=== PATIENT | male | born 1945 | race Caucasian/White ===

== ENCOUNTER 2017-06-12 15:08 | Emergency (ER) | payer MEDICARE, OTHER ==
[2017-06-12] MEDS ORDERED: Sodium Chloride 0.9% 10 ML Syringe FLUSH PRN (15:16)
[2017-06-12] MEDS ORDERED: Sodium Chloride 0.9% 1,000 ML IV SCH (15:30)
--- NOTE | 2017-06-12 16:38 | CT ---
Head CT Technique: Multiple axial sections through the brain were obtained. Intravenous contrast was not utilized. Comparison: No previous intracranial imaging is available. Findings: Ventricles along with basal cisterns and sulci with convexities are mildly prominent. Small calcification appears to be present within the right cerebellar peduncle. This is felt to be incidental. Mild vascular calcification is seen within the vertebral vessels and carotid siphon. No evidence of intracranial hemorrhage. No midline shift or mass effect is seen. No abnormal parenchymal densities are otherwise seen. Bone window settings were reviewed which shows the visualized sinuses to appear clear. No acute calvarial abnormality is seen. Impression: 1. Incidental findings. Nothing acute is identified on noncontrast head CT study. Diagnostic code #2
[2017-06-12] MEDS ORDERED: Sodium Chloride 0.9% 1,000 ML IV ONE (17:22)
--- NOTE | 2017-06-12 17:31 | EDM.PDOC ---
ED HPI GENERAL MEDICAL PROBLEM - General Chief Complaint: Chest Pain Stated Complaint: [facility] Time Seen by Provider: 06/12/17 15:12 Source of Information: Reports: Patient, EMS History Limitations: Reports: No Limitations - History of Present Illness INITIAL COMMENTS - FREE TEXT/NARRATIVE: The patient presents by [facility] for chest pain. He is originally from the [facility] and he was taking care of his son's dogs in [place]. He is a type 2 diabetic and he requires metformin and insulin. He takes 1,000mg of metformin and sixty eight units of insulin degludec or tresiba. He cannot afford these medications and he has not been taking them for about 7 weeks. He has been very weak and drinking and urinating a lot. He has not checked his blood sugar. He developed some chest pain today. [facility] called for [facility] and they came and gave him some aspirin and nitro. The also established an IV. The patient smelled of ketones. He was chest pain free when he got here. He does have a headache now. He has had that for about a week. He has no numbness. He has no shortness of breath. He has no abdominal pain, nausea or vomiting. Onset: Gradual Duration: Day(s): Location: Reports: Chest Quality: Reports: Pressure Severity: Moderate Improves with: Reports: None Worsens with: Reports: None Associated Symptoms: Reports: Chest Pain. Denies: Fever/Chills, Loss of Appetite, Nausea/Vomiting, Shortness of Breath Treatments [employer]: Reports: Aspirin, Nitroglycerin Other Treatments [employer]: in ambulance Headache Pain Score (Numeric/FACES): 6 - Related Data Allergies Allergy/AdvReac Type Severity Reaction Status Date / Time No Known Allergies Allergy Verified 06/12/17 15:12 Home Meds: Home Meds Acetaminophen [Tylenol] 325 mg PO DAILY 06/12/17 [History] Allopurinol [Zyloprim] 300 mg PO DAILY 06/12/17 [History] Aspirin 81 mg PO DAILY 06/12/17 [History] Gabapentin [Neurontin] 600 mg PO BID 06/12/17 [History] Insulin Degludec [Tresiba Flextouch U-100] 68 unit SQ DAILY 06/12/17 [History] Lisinopril 30 mg PO DAILY 06/12/17 [History] Nitroglycerin [Nitrostat] 0.4 mcg SL ASDIRECTED PRN 06/12/17 [History] atorvaSTATin [Lipitor] 20 mg PO ONETIME 06/12/17 [History] metFORMIN HCl [Metformin HCl] 1,000 mg PO DAILY 06/12/17 [History] Past Medical History HEENT History: Reports: Cataract, Impaired Vision Cardiovascular History: Reports: CAD, Hypertension Musculoskeletal History: Reports: Back Pain, Chronic Endocrine/Metabolic History: Reports: Diabetes, Type II Oncologic (Cancer) History: Reports: Other (See Below) Other Oncologic History: skin - Past Surgical History HEENT Surgical History: Reports: Naso-Sinus Surgery Social & Family History - Family History Family Medical History: Noncontributory Endocrine/Metabolic: Reports: Diabetes, type II - Tobacco Use Smoking Status *Q: Never Smoker - Caffeine Use Caffeine Use: Reports: Coffee - Recreational Drug Use Recreational Drug Use: No ED ROS GENERAL - Review of Systems Review Of Systems: See Below Constitutional: Reports: No Symptoms, Fatigue HEENT: Reports: No Symptoms Respiratory: Reports: No Symptoms Cardiovascular: Reports: No Symptoms Endocrine: Reports: Fatigue, Polydypsia, Polyuria GI/Abdominal: Reports: No Symptoms : Reports: No Symptoms Musculoskeletal: Reports: No Symptoms Skin: Reports: No Symptoms ED EXAM, GENERAL - Physical Exam Exam: See Below Exam Limited By: No Limitations General Appearance: Alert, No Apparent Distress Nose: Normal Inspection Throat/Mouth: Other (Dry mucus membranes) Head: Atraumatic, Normocephalic Neck: Normal Inspection Respiratory/Chest: No Respiratory Distress, Lungs Clear, Normal Breath Sounds Cardiovascular: No Edema, No Murmur, Tachycardia GI/Abdominal: Soft, Non-Tender, No Organomegaly, No Mass Extremities: Normal Inspection Neurological: Alert, Oriented, No Motor/Sensory Deficits EKG INTERPRETATION EKG Date: 06/12/17 Time: 15:29 Rhythm: Other (Sinus tachycardia) Rate (Beats/Min): 100 [place]: Normal P-Wave: Present QRS: Normal ST-T: Normal QT: Normal EKG Interpretation Comments: Q waves in the inferior and anterior leads Course - Vital Signs Last Recorded V/S: Last Vital Signs Temp 97.8 F 06/12/17 15:19 Pulse 104 H 06/12/17 15:19 Resp 18 06/12/17 15:19 BP 159/106 H 06/12/17 15:19 Pulse Ox 98 06/12/17 15:19 - Orders/Labs/Meds Orders: Active Orders 24 hr Category Date Time Status Cardiac Monitoring [RC] . DIRECTED Care 06/12/17 15:16 Active EKG Documentation Completion [RC] STAT Care 06/12/17 15:16 Active Oxygen Therapy [RC] PRN Care 06/12/17 15:16 Active Peripheral IV Care [RC] . DIRECTED Care 06/12/17 15:16 Active Chest 1V Frontal [CR] Stat Exams 06/12/17 15:17 Taken TROPONIN I [CHEM] Stat Lab 06/12/17 17:44 Ordered Sodium Chloride 0.9% [Normal Saline] 1,000 ml Med 06/12/17 15:30 Active IV .BOLUS Sodium Chloride 0.9% [Normal Saline] 1,000 ml Med 06/12/17 17:22 Active IV ONETIME Sodium Chloride 0.9% [Saline Flush] Med 06/12/17 15:16 Active 10 ml FLUSH ASDIRECTED PRN Peripheral IV Insertion Adult [OM.PC] Stat Oth 06/12/17 15:16 Ordered Medication Orders Sodium Chloride (Normal Saline) 1,000 mls @ 1,000 mls/hr IV .BOLUS SALEEM Last Admin: 06/12/17 15:31 Dose: 1,000 mls/hr Sodium Chloride (Normal Saline) 1,000 mls @ 1,000 mls/hr IV ONETIME ONE Stop: 06/12/17 18:21 Last Admin: 06/12/17 17:29 Dose: 1,000 mls/hr Sodium Chloride (Saline Flush) 10 ml FLUSH ASDIRECTED PRN PRN Reason: Keep Vein Open Last Admin: 06/12/17 15:32 Dose: 10 ml Labs: Laboratory Tests 06/12/17 06/12/17 06/12/17 Range/Units 15:17 15:55 15:55 WBC 5.92 (4.23-9.07) K/mm3 RBC 5.03 (4.63-6.08) M/mm3 Hgb 14.9 (13.7-17.5) gm/L Hct 42.8 (40.1-51.0) % MCV 85.1 (79.0-92.2) fl MCH 29.6 (25.7-32.2) pg MCHC 34.8 (32.2-35.5) g/dl RDW Std Deviation 40.6 (35.1-43.9) fL Plt Count 241 (163-337) K/mm3 MPV 9.4 (9.4-12.3) fl Neut % (Auto) 70.6 H (34.0-67.9) % Lymph % (Auto) 20.6 L (21.8-53.1) % [place] % (Auto) 7.9 (5.3-12.2) % Eos % (Auto) 0.5 L (0.8-7.0) Baso % (Auto) 0.2 (0.1-1.2) % Neut # (Auto) 4.18 (1.78-5.38) K/mm3 Lymph # (Auto) 1.22 L (1.32-3.57) K/mm3 [place] # (Auto) 0.47 (0.30-0.82) K/mm3 Eos # (Auto) 0.03 L (0.04-0.54) K/mm3 Baso # (Auto) 0.01 (0.01-0.08) K/mm3 VBG pH 7.25 L (7.30-7.40) Sodium 135 L (136-145) mEq/L Potassium 4.0 (3.5-5.1) mEq/L Chloride 95 L (98-107) mEq/L Carbon Dioxide 19 L (21-32) mEq/L Anion Gap 25.0 H (5-15) BUN 28 H (7-18) mg/dL Creatinine 1.6 H (0.7-1.3) mg/dL Est Cr Clr Drug Dosing 47.15 mL/min Estimated GFR (MDRD) 43 (>60) mL/min BUN/Creatinine Ratio 17.5 (14-18) Glucose 431 H (80-115) mg/dL Serum Osmolality 312 H (280-300) mosm/kg Calcium 9.6 (8.5-10.1) mg/dL Total Bilirubin 0.8 (0.2-1.0) mg/dL AST 17 (15-37) U/L ALT 22 (16-63) U/L Alkaline Phosphatase 85 (46-116) U/L Troponin I 0.143 H* (0.00-0.056) ng/mL Total Protein 7.9 (6.4-8.2) g/dl Albumin 3.2 L (3.4-5.0) g/dl Globulin 4.7 gm/dL Albumin/Globulin Ratio 0.7 L (1-2) Ketones (0.0-0.3) mM 06/12/17 Range/Units 15:55 WBC (4.23-9.07) K/mm3 RBC (4.63-6.08) M/mm3 Hgb (13.7-17.5) gm/L Hct (40.1-51.0) % MCV (79.0-92.2) fl MCH (25.7-32.2) pg MCHC (32.2-35.5) g/dl RDW Std Deviation (35.1-43.9) fL Plt Count (163-337) K/mm3 MPV (9.4-12.3) fl Neut % (Auto) (34.0-67.9) % Lymph % (Auto) (21.8-53.1) % [place] % (Auto) (5.3-12.2) % Eos % (Auto) (0.8-7.0) Baso % (Auto) (0.1-1.2) % Neut # (Auto) (1.78-5.38) K/mm3 Lymph # (Auto) (1.32-3.57) K/mm3 [place] # (Auto) (0.30-0.82) K/mm3 Eos # (Auto) (0.04-0.54) K/mm3 Baso # (Auto) (0.01-0.08) K/mm3 VBG pH (7.30-7.40) Sodium (136-145) mEq/L Potassium (3.5-5.1) mEq/L Chloride (98-107) mEq/L Carbon Dioxide (21-32) mEq/L Anion Gap (5-15) BUN (7-18) mg/dL Creatinine (0.7-1.3) mg/dL Est Cr Clr Drug Dosing mL/min Estimated GFR (MDRD) (>60) mL/min BUN/Creatinine Ratio (14-18) Glucose (80-115) mg/dL Serum Osmolality (280-300) mosm/kg Calcium (8.5-10.1) mg/dL Total Bilirubin (0.2-1.0) mg/dL AST (15-37) U/L ALT (16-63) U/L Alkaline Phosphatase (46-116) U/L Troponin I (0.00-0.056) ng/mL Total Protein (6.4-8.2) g/dl Albumin (3.4-5.0) g/dl Globulin gm/dL Albumin/Globulin Ratio (1-2) Ketones 7.16 (0.0-0.3) mM Meds: Medications Generic Name Dose Route Start Last Admin Trade Name Freq PRN Reason Stop Dose Admin Sodium Chloride 1,000 mls @ 1,000 mls/hr 06/12/17 15:30 06/12/17 15:31 Normal Saline IV 1,000 mls/hr .BOLUS SALEEM Administration Sodium Chloride 1,000 mls @ 1,000 mls/hr 06/12/17 17:22 06/12/17 17:29 Normal Saline IV 06/12/17 18:21 1,000 mls/hr ONETIME ONE Administration Sodium Chloride 10 ml 06/12/17 15:16 06/12/17 15:32 Saline Flush FLUSH 10 ml ASDIRECTED PRN Administration Keep Vein Open - Re-Assessments/Exams Free Text/Narrative Re-Assessment/Exam: 06/12/17 17:53 I ordered an IV NS 1L bolus, labs, EKG, CXR, and CT of his head. His EKG shows a sinus tachycardia with Q waves in the inferior and anterior leads. His CBC looks good. His pH was low at 7.25. His Na was 135. His anion gap was elevated at 25. His creatinine was elevated at 1.6. His serum osmolality was 312. His troponin was elevated at 0.143. His ketones were elevated at 7.16. He has DKA and possibly a type II ID secondary to the DKA. I have ordered another IV bolus of NS. I feel he needs to be admitted. I called Dr Smith and she agreed. The patient's family is here with him now. Departure - Departure Time of Disposition: 18:00 Disposition: Admitted As Inpatient 67 Condition: Serious Clinical Impression: Renal insufficiency, Dehydration, Elevated troponin DKA (diabetic ketoacidoses) Qualifiers: Diabetes mellitus type: type 2 Diabetes mellitus complication detail: without coma Qualified Code(s): E13.10 - Other specified diabetes mellitus with ketoacidosis without coma Referrals: PCP,Not In Area [Primary Care Provider] - Forms: ED Department Discharge - My Orders Last 24 Hours: My Active Orders 06/12/17 15:16 Cardiac Monitoring [RC] . DIRECTED EKG Documentation Completion [RC] STAT Oxygen Therapy [RC] PRN Peripheral IV Care [RC] . DIRECTED Sodium Chloride 0.9% [Saline Flush] 10 ml FLUSH ASDIRECTED PRN Peripheral IV Insertion Adult [OM.PC] Stat 06/12/17 15:17 Chest 1V Frontal [CR] Stat 06/12/17 15:30 Sodium Chloride 0.9% [Normal Saline] 1,000 ml IV .BOLUS 06/12/17 17:22 Sodium Chloride 0.9% [Normal Saline] 1,000 ml IV ONETIME 06/12/17 17:44 TROPONIN I [CHEM] Stat - Assessment/Plan Last 24 Hours: My Active Orders 06/12/17 15:16 Cardiac Monitoring [RC] . DIRECTED EKG Documentation Completion [RC] STAT Oxygen Therapy [RC] PRN Peripheral IV Care [RC] . DIRECTED Sodium Chloride 0.9% [Saline Flush] 10 ml FLUSH ASDIRECTED PRN Peripheral IV Insertion Adult [OM.PC] Stat 06/12/17 15:17 Chest 1V Frontal [CR] Stat 06/12/17 15:30 Sodium Chloride 0.9% [Normal Saline] 1,000 ml IV .BOLUS 06/12/17 17:22 Sodium Chloride 0.9% [Normal Saline] 1,000 ml IV ONETIME 06/12/17 17:44 TROPONIN I [CHEM] Stat
--- NOTE | 2017-06-12 18:35 | PCM.HP ---
H&P History of Present Illness - General Date of Service: 06/12/17 Headache Pain Score (Numeric/FACES): 6 - Related Data Allergies/Adverse Reactions: Allergies Allergy/AdvReac Type Severity Reaction Status Date / Time No Known Allergies Allergy Verified 06/12/17 15:12 Home Medications: Home Meds Acetaminophen [Tylenol] 325 mg PO DAILY 06/12/17 [History] Allopurinol [Zyloprim] 300 mg PO DAILY 06/12/17 [History] Aspirin 81 mg PO DAILY 06/12/17 [History] Gabapentin [Neurontin] 600 mg PO BID 06/12/17 [History] Insulin Degludec [Tresiba Flextouch U-100] 68 unit SQ DAILY 06/12/17 [History] Lisinopril 30 mg PO DAILY 06/12/17 [History] Nitroglycerin [Nitrostat] 0.4 mcg SL ASDIRECTED PRN 06/12/17 [History] atorvaSTATin [Lipitor] 20 mg PO ONETIME 06/12/17 [History] metFORMIN HCl [Metformin HCl] 1,000 mg PO DAILY 06/12/17 [History] Past Medical History HEENT History: Reports: Cataract, Impaired Vision Cardiovascular History: Reports: CAD, Hypertension Musculoskeletal History: Reports: Back Pain, Chronic Endocrine/Metabolic History: Reports: Diabetes, Type II Oncologic (Cancer) History: Reports: Other (See Below) Other Oncologic History: skin - Past Surgical History HEENT Surgical History: Reports: Naso-Sinus Surgery Social & Family History - Family History Family Medical History: Noncontributory Endocrine/Metabolic: Reports: Diabetes, type II - Tobacco Use Smoking Status *Q: Never Smoker - Caffeine Use Caffeine Use: Reports: Coffee - Recreational Drug Use Recreational Drug Use: No Exam - Vital Signs Vital Signs: Last Vital Signs Temp 36.6 C 06/12/17 15:19 Pulse 104 H 06/12/17 15:19 Resp 18 06/12/17 15:19 BP 159/106 H 06/12/17 15:19 Pulse Ox 98 06/12/17 15:19 Weight: 101.151 kg - Patient Data Result Diagrams: 06/12/17 15:55 06/12/17 15:55 *Q Meaningful Use (ADM) - VTE *Q VTE Criteria *Q: - Stroke *Q Stroke Criteria *Q: - AMI *Q AMI Criteria *Q: Orders Last 24hrs: Medication Orders Sodium Chloride (Normal Saline) 1,000 mls @ 1,000 mls/hr IV .BOLUS SALEEM Last Admin: 06/12/17 15:31 Dose: 1,000 mls/hr Sodium Chloride (Saline Flush) 10 ml FLUSH ASDIRECTED PRN PRN Reason: Keep Vein Open Last Admin: 06/12/17 15:32 Dose: 10 ml
[2017-06-12] MEDS ORDERED: Lactated Ringers 1,000 ML IV SCH (19:15)
[2017-06-12] MEDS ORDERED: Enoxaparin 100 MG/1 ML Syringe SUBCUT ONE (19:23)
--- NOTE | 2017-06-14 07:39 | CR ---
Chest: Portable view of the chest was obtained. Comparison: No prior study. Heart size is normal. Mild tortuosity of the thoracic aorta is seen. Lungs are clear. Bony structures are grossly intact. Impression: 1. Nothing acute is identified on portable chest x-ray. Diagnostic code #2
== END 2017-06-12 21:30 ==
LOC: JD.ED 15:08 → JD.MS 18:22 → JD.ICU 18:22 → UNDOADMIN 18:22 → JD.ED 21:30 → UNDODISIN 06-13 10:08
DX: E11.10 Type 2 diabetes mellitus with ketoacidosis without coma (principal); N28.9 Disorder of kidney and ureter, unspecified; I10 Essential (primary) hypertension; R79.89 Other specified abnormal findings of blood chemistry; Z79.82 Long term (current) use of aspirin; Z79.4 Long term (current) use of insulin; Z79.899 Other long term (current) drug therapy; Z79.84 Long term (current) use of oral hypoglycemic drugs; R51 Headache
CPT/HCPCS: 36415; 70450; 71010; 80053; 82009; 82800; 82947; 82962; 83605; 83735; 83930; 84484; 85025; 93005; 96361; 96365; 96366; 96372; 99285; J1650; J1817; J7030; J7040; J7050; J7120; 93010